=== PATIENT | female | born 1960 | race Caucasian/White ===

== ENCOUNTER 2016-09-15 14:24 | Emergency (ER) | payer BC ==
[~2016-09-15 14:24] MED LIST: LASIX PO; LISINOPRIL20 MG PO; NORVASC PO
== END 2016-09-15 14:43 | disposition home or self-care (01) ==
LOC: SED 14:24
DX: M76.61 Achilles tendinitis, right leg (principal); Z88.8 Allergy status to other drugs, medicaments and biological substances; I11.0 Hypertensive heart disease with heart failure; I50.9 Heart failure, unspecified
CPT/HCPCS: 99282